=== PATIENT | male | born 1965 | race Two or more races ===

== ENCOUNTER 2024-05-15 11:21 | Inpatient (IN) | payer OTHER, SELFPAY ==
[2024-05-13] VITALS (10 sets, daily range): BP systolic 127–176; BP diastolic 85–114; BMI 29.8; BMI 29.0; BMI 28.8
[2024-05-13 14:35] LABS: % Basophils 0.6 % (0-2); % Eosinophils 0.3 % (0-6); % Immature Granulocytes 0.6 % (0-0.5); % Lymphocytes 27.3 % (20.5-51.1); % Monocytes 7.9 % (1.7-9.3); % Neutrophils 63.3 % (42.2-75.2); Absolute Basophils 0.1 10^3/uL (0-0.2); Absolute Immature Granulocytes 0.1 10^3/uL (0-0.05); Absolute Lymphocytes 3.4 10^3/uL (1.2-3.4); Absolute Neutrophils 7.9 10^3/uL (1.4-6.5); Hematocrit 47.4 % (39.0-52.0); Hemoglobin 16.8 g/dL (13.0-18.0); Mean Corp Hgb Conc. 35.4 g/dL (33.0-37.0); Mean Corpuscular Hgb 32.9 pg (27.0-31.0); Mean Corpuscular Volume 92.8 fL (80.0-94.0); Mean Platelet Volume 10.4 fL (7.4-10.4); Nucleated Red Blood Cells % 0 % (-); Platelet Count 216 10^3/uL (130-400); Red Blood Cell Count 5.11 10^6/uL (4.70-6.10); White Blood Cell Count 12.4 10^3/uL (4.8-10.8)
[2024-05-13 14:50] LABS: ALT (SGPT) 39 U/L (0-50); AST (SGOT) 44 U/L (17-59); Albumin 4.8 g/dl (3.5-5.0); Alkaline Phosphatase 70 U/L (38-126); Blood Urea Nitrogen 14 mg/dl (9-20); Calcium 10.1 mg/dl (8.4-10.2); Carbon Dioxide 19 mmol/L (22-30); Chloride 105 mmol/L (98-107); Glucose 135 mg/dl (70-99); Potassium 4.1 mmol/L (3.5-5.1); Sodium 142 mmol/L (135-145); Total Bilirubin 0.5 mg/dl (0.2-1.3); Total Protein 7.3 g/dl (6.3-8.2); eGFR > 60.00
[2024-05-13 15:11] LABS: Troponin I < 0.012 ng/ml
--- NOTE | 2024-05-13 15:44 | ED.GENMED ---
History of Present Illness
<Jonathan Hong MD, Resident - Last Filed: 05/13/24 20:05>
General
Chief Complaint: Chest Pain
Source: patient and records
Time Seen by Provider: 05/13/24 15:22
Travel History
Have you traveled to any high risk areas for coronavirus over the past 14 days?: No
Have you had any contact with someone who has COVID-19?: No
Do you have any symptoms of coronavirus? Fever > 100 degrees, chills, cough, shortness of breath, sore throat, loss of taste or smell, muscle aches, or headache?: No
History of Present Illness
History of Present Illness:
Lukas Pascal, 58-year-old male with a history of NSTEMI s/p stent in 2019, started experiencing left chest pain radiating to the arm and shoulder during a walk after lunch. Mild nausea and shortness of breath after the pain started and he got worried
about having another heart attack. Symptoms resolved in 20-30 minutes. He was mildly dizzy in the ED waiting room for a couple of minutes. Asymptomatic at present. Denies any recent changes to health or illnesses.
Past History
<Jonathan Hong MD, Resident - Last Filed: 05/13/24 20:05>
Past History
ED Past Medical History: AK (NSTEMI 2019)
ED Past Surgical History: Cardiac (stent 2019)
Social History
Tobacco: Smoker
Alcohol: Occasional
Drug: None
Personal:
Employment: Employed
Review of Systems
<Jonathan Hong MD, Resident - Last Filed: 05/13/24 20:05>
Review of Systems
All Other Systems: Not applicable
Constitutional: Reports no symptoms
EENT: Reports no symptoms
Respiratory: Reports no symptoms
Cardiac: Reports no symptoms
ABD/GI: Reports no symptoms
: Reports no symptoms
Musculoskeletal: Reports no symptoms
Skin: Reports no symptoms
Neurological: Reports no symptoms
Endocrine: Reports no symptoms
Hematologic/Lymphatic: Reports no symptoms
Psychiatric: Reports no symptoms
Phy Exam
<Jonathan Hong MD, Resident - Last Filed: 05/13/24 20:05>
General Physical Exam
General Presentation: well appearing and no apparent distress
General Skin: warm and dry
General Habitus: normal
General Mental: alert
General Hydration: appears well hydrated
ENT Exam
ENT Exam: EOMI, pharynx normal, neck supple and normocephalic
Eye Exam
Eye Exam: PERRL, cornea clear and conjunctiva normal
Cardiovascular Exam
Cardiovascular Exam: regular rate/rhythm, no edema, no murmur and normal peripheral pulses
Pulmonary Exam
Pulmonary Exam: lungs clear, no respiratory distress, no rales, no crackles, no rhonchi, no stridor, no wheezing and no cough
Gastrointestinal Exam
Gastrointestinal Exam: normal bowel sounds, non tender, soft, no organomegaly, no pulsatile mass and non distended
Neurological Exam
Neurological Exam: alert, oriented x3, no motor deficits and speech normal
Musculoskeletal Exam
Musculoskeletal Exam: full ROM and no edema
Skin Exam
Skin Exam: normal color, warm/dry, no rash and no petechia
Psychiatric Exam
Psychiatric Exam: normal mood/affect
Scores
<Jonathan Hong MD, Resident - Last Filed: 05/13/24 20:05>
Heart Score for Chest Pain Patients
STEMI patient?: No
History: Slightly or Non-Suspicious
ECG: Normal
Age: >45 - <65 years
Risk Factors: >/= 3 Risk Factors or History of CAD
Troponin: >/= 3 x Normal Limit
Heart Score for Chest Pain Patients: 5
Heart Score Risk: 20.3% MACE over next 6 weeks
Course
<Jonathan Hong MD, Resident - Last Filed: 05/13/24 20:05>
Orders/Labs/Results
Orders:
Orders
05/13/24 14:08
Electrocardiogram (*1) Urgent
Reason for Study: Chest Pain
EKG- Treatment ONCE
05/13/24 14:27
CMP [Comprehensive Metabolic Panel] Urgent
Complete Blood Count/With Diff Urgent
Troponin I Urgent
05/13/24 16:11
CT Chest Pe Study Urgent
Comment:
Reason For Exam: chest pain
05/13/24 16:12
0.9% Sodium Chloride 500 ml [Nss] 500 ml IV BOLUS
05/13/24 17:17
Troponin I Urgent
05/13/24 19:41
PTT Urgent
Comment: Obtain baseline before beginning heparin infusion if not already collected
Heparin 4,000 units IV NOW STA
Pharmacy Request to Place See Dose Instructions PO NOW STA
Discontinue all Active Warfarin orders?: Yes
Nursing to Place Non Medication Order As Directed
Physician Order: PTT 6 hours after initial start of Heparin infusion
05/13/24 19:44
Aspirin 325 mg PO NOW STA
05/13/24 19:45
Heparin 09119 Units/250 ml 25,000 units in 250 ml IV PER PROTOCOL
Weight to be used for heparin protocol in kilograms (kg):: 94.2
Protocol:: Cardiac Tx/Acute Coronary
PTT Goal Range to be used:: PTT 73 to 111 seconds
Order type:: Initial
INITIAL Infusion Dose (UNITS/KG/hr) & then follow protocol:: 15 units/kg/hr
Infusion Dose in UNITS/hr & then follow protocol (UNITS/hr):: 1,400
INFUSION RATE in mL/hr & then follow protocol (mL/hr):: 14
PTT less than or equal to 64 seconds:: Increase rate by 200 units/hr (+ 2 mL/hr)
PTT 64.1 to 72.9 seconds:: Increase rate by 100 units/hr (+ 1 mL/hr)
PTT 73 to 111 seconds:: Target Range. No change in rate.
PTT 111.1 to 130.9 seconds:: Decrease rate by 100 units/hr (- 1 mL/hr)
PTT 131 to 199.9 seconds:: HOLD for 1 hr. Then decrease rate by 200 units/hr (- 2 mL/hr)
PTT greater than or equal to 200 seconds:: HOLD for 2 hrs & Notify Provider. Then decrease by 200 units/hr (-
2 mL/hr)
Lab follow-up:: Each change, PTT q6h until 2 consecutive are therapeutic. Then PTT
daily.
05/13/24 19:57
CARDIOLOGY CONSULT Urgent
Consulting Provider: Antonio Rolle
Was physician already notified: Yes
05/13/24 20:[address] See Dose Instructions IV DIRECTED
Abnormal Lab Results
05/13/24 05/13/24
14:27 17:17
WBC 12.4 H 10^3/uL
(4.8-10.8)
MCH 32.9 H pg
(27.0-31.0)
Abs Immat Gran (auto) 0.1 H 10^3/uL
(0-0.05)
Absolute Neuts (auto) 7.9 H 10^3/uL
(1.4-6.5)
Absolute Monos (auto) 1.0 H 10^3/uL
(0.1-0.6)
Immature Gran % 0.6 H %
(0-0.5)
Carbon Dioxide 19 L mmol/L
(22-30)
Glucose 135 H mg/dl
(70-99)
Troponin I 0.042 H* D ng/ml
05/13/24 14:27
05/13/24 14:27
Vital Signs
Initial and Last Documented VS:
Initial Vital Signs
Temp Pulse Resp BP Pulse Ox
98.0 F 120 20 140/90 94
05/13/24 14:15 05/13/24 14:15 05/13/24 14:15 05/13/24 14:15 05/13/24 14:15
Last Documented Vital Signs
Temp Pulse Resp BP Pulse Ox
98.2 F 108 22 132/86 94
05/13/24 15:48 05/13/24 17:15 05/13/24 17:15 05/13/24 17:00 05/13/24 15:48
<Yennifer Milian MD - Last Filed: 05/13/24 16:22>
Orders/Labs/Results
Orders:
Orders
05/13/24 14:08
Electrocardiogram (*1) Urgent
Reason for Study: Chest Pain
EKG- Treatment ONCE
05/13/24 14:27
CMP [Comprehensive Metabolic Panel] Urgent
Complete Blood Count/With Diff Urgent
Troponin I Urgent
05/13/24 16:11
CT Chest Pe Study Urgent
Comment:
Reason For Exam: chest pain
05/13/24 16:12
0.9% Sodium Chloride 500 ml [Nss] 500 ml IV BOLUS
05/13/24 17:17
Troponin I Urgent
05/13/24 19:41
PTT Urgent
Comment: Obtain baseline before beginning heparin infusion if not already collected
Heparin 4,000 units IV NOW STA
Pharmacy Request to Place See Dose Instructions PO NOW STA
Discontinue all Active Warfarin orders?: Yes
Nursing to Place Non Medication Order As Directed
Physician Order: PTT 6 hours after initial start of Heparin infusion
05/13/24 19:44
Aspirin 325 mg PO NOW STA
05/13/24 19:45
Heparin 10845 Units/250 ml 25,000 units in 250 ml IV PER PROTOCOL
Weight to be used for heparin protocol in kilograms (kg):: 94.2
Protocol:: Cardiac Tx/Acute Coronary
PTT Goal Range to be used:: PTT 73 to 111 seconds
Order type:: Initial
INITIAL Infusion Dose (UNITS/KG/hr) & then follow protocol:: 15 units/kg/hr
Infusion Dose in UNITS/hr & then follow protocol (UNITS/hr):: 1,400
INFUSION RATE in mL/hr & then follow protocol (mL/hr):: 14
PTT less than or equal to 64 seconds:: Increase rate by 200 units/hr (+ 2 mL/hr)
PTT 64.1 to 72.9 seconds:: Increase rate by 100 units/hr (+ 1 mL/hr)
PTT 73 to 111 seconds:: Target Range. No change in rate.
PTT 111.1 to 130.9 seconds:: Decrease rate by 100 units/hr (- 1 mL/hr)
PTT 131 to 199.9 seconds:: HOLD for 1 hr. Then decrease rate by 200 units/hr (- 2 mL/hr)
PTT greater than or equal to 200 seconds:: HOLD for 2 hrs & Notify Provider. Then decrease by 200 units/hr (-
2 mL/hr)
Lab follow-up:: Each change, PTT q6h until 2 consecutive are therapeutic. Then PTT
daily.
05/13/24 19:57
CARDIOLOGY CONSULT Urgent
Consulting Provider: Antonio Rolle
Was physician already notified: Yes
05/13/24 20:[address] See Dose Instructions IV DIRECTED
Abnormal Lab Results
05/13/24 05/13/24
14:27 17:17
WBC 12.4 H 10^3/uL
(4.8-10.8)
MCH 32.9 H pg
(27.0-31.0)
Abs Immat Gran (auto) 0.1 H 10^3/uL
(0-0.05)
Absolute Neuts (auto) 7.9 H 10^3/uL
(1.4-6.5)
Absolute Monos (auto) 1.0 H 10^3/uL
(0.1-0.6)
Immature Gran % 0.6 H %
(0-0.5)
Carbon Dioxide 19 L mmol/L
(22-30)
Glucose 135 H mg/dl
(70-99)
Troponin I 0.042 H* D ng/ml
05/13/24 14:27
05/13/24 14:27
Vital Signs
Initial and Last Documented VS:
Initial Vital Signs
Temp Pulse Resp BP Pulse Ox
98.0 F 120 20 140/90 94
05/13/24 14:15 05/13/24 14:15 05/13/24 14:15 05/13/24 14:15 05/13/24 14:15
Last Documented Vital Signs
Temp Pulse Resp BP Pulse Ox
98.2 F 108 22 132/86 94
05/13/24 15:48 05/13/24 17:15 05/13/24 17:15 05/13/24 17:00 05/13/24 15:48
<Jonathan Hong MD, Resident - Last Filed: 05/13/24 20:05>
MDM/Problems Addressed
MDM/Problems Addressed:
Persistent tachycardia. Asymptomatic otherwise. Will check a PE study and repeat troponin.
Troponin elevation noted on repeat - will admit for a possible cath. Will discuss with cardiology.
<Jonathan Hong MD, Resident - Last Filed: 05/13/24 20:05>
*Critical Care Note
Total Time (30-74mins, 75-104mins- exclusive of procedures): Not Applicable
ED Attending Note
<Jonathan Hong MD, Resident - Last Filed: 05/13/24 20:05>
-
Portions of this chart may have been created with voice recognition software.� Occasional wrong word or��sound alike� substitutions may have occurred due to the inherent limitations of voice recognition software.
<Yennifer Milian MD - Last Filed: 05/13/24 16:22>
ED Attending Note
Patient seen and examined by attending physician: Yes
I performed a history and physical exam of patient and discussed management with resident, I reviewed resident's note and agree with documented findings and plan of care.: Yes
ED Attending Note:
4:22 pm Patient appears anxious but is conversational. Heart sounds fast and regular. Lungs are clear. We will do a second troponin and a PE study given persistent tachycardia. Patient reports his chest pain is much improved and nearly gone.
Discharge Plan
Departure
Patient Disposition: Admit
Date of Disposition: 05/13/24
Time of Disposition: 19:55
Presentation/result/management discussed w/ accepting MD/DO: Hospitalist
Discharge Problem:
Non-ST elevation AK (NSTEMI)
Prescriptions:
No Action
atorvastatin 80 MG tablet
80 mg PO QPM Qty: 30 11RF
pantoprazole 40 MG tablet,delayed release (DR/EC)
40 mg PO DAILY Qty: 30 11RF
aspirin 81 MG tablet,chewable
81 mg PO DAILY 0RF
ticagrelor [Brilinta] 90 MG tablet
90 mg PO BID Qty: 60 11RF
metoprolol succinate [Toprol XL] 25 MG tablet extended release 24 hr
25 mg PO BID 90 Days Qty: 180 0RF
Referrals:
Meghan Griffin DO [Family Provider] -
Interventions
Interventions:
*Neglect/Abuse Screening Last Done: 05/13/24 15:47
ED- Fall Risk Assessment Last Done: 05/13/24 15:46
*ED COVID-19 Vaccine History Last Done: 05/13/24 14:15
ED- Cardiac Assessment Last Done: 05/13/24 15:44
Discharge Date and Time
Print Language: TELUGU
[2024-05-13] MEDS: NSS 500 IV (17:18)
[2024-05-13 18:00] LABS: Troponin I 0.042 ng/ml
--- NOTE | 2024-05-13 20:24 | HPS.HSE ---
Family Physician
-
Family Physician: Meghan Griffin
Chief Complaint
-
chest pain
History of Present Illness
58-year-old male past medical history of CAD status post stent in 2019, presenting with left chest pain radiating to the arm and shoulder during a walk after lunch. Associated mild nausea without shortness of breath or sweating. Symptoms resolved
in 20 to 30 minutes. He was mildly dizzy in the ER. Denies any symptoms currently.
He smokes 4 to 5 cigarettes/day. He drinks 2-3 drinks per day. Sometimes a bit more.
Both of his parents had heart attacks.
Medical History
Past Medical History
Past Medical History: Reports Other (CAD status post stent in 2019)
Past Surgical History: Reports None
Social History
Tobacco: Smoker
Alcohol: Daily
Drug: None
Family History
Family History: Other (parents with CAD )
Allergies / Home Medications
Allergies reflects when Allergies were last updated in [facility].
Home Medications with original date entered in [facility]
Allergy/Medication List:
Allergies
Allergy/AdvReac Type Severity Reaction Status Date / Time
No Known Allergies Allergy Verified 05/13/24 14:21
Home Medications
aspirin 81 mg chewable tablet 81 mg PO DAILY 09/16/19
atorvastatin 80 mg tablet 80 mg PO QPM #30 tabs 09/16/19
pantoprazole 40 mg tablet,delayed release 40 mg PO DAILY #30 tabs 09/16/19
ticagrelor 90 mg tablet (Brilinta) 90 mg PO BID #60 tabs 09/16/19
metoprolol succinate 25 mg tablet,extended release 24 hr (Toprol XL) 25 mg PO BID 90 days ##180 09/17/19
Review of Systems
-
History Source: Patient
A 12 point ROS was completed and negative except as noted: Yes
Constitutional: Reports No Symptoms
EENT: Reports No Symptoms
Respiratory: Reports See HPI
Cardiac: Reports See HPI
Abdomen/GI: Reports No Symptoms
: Reports No Symptoms
Musculoskeletal: Reports No Symptoms
Skin: Reports No Symptoms
Neurological: Reports No Symptoms
Endocrine: Reports No Symptoms
Hematologic/Lymphatic: Reports No Symptoms
Psych: Reports No Symptoms
Physical Exam
Vital Signs
Vital Signs
Temp Pulse Resp BP Pulse Ox
98.2 F 108 22 132/86 94
05/13/24 15:48 05/13/24 17:15 05/13/24 17:15 05/13/24 17:00 05/13/24 15:48
Physical Exam
General: Well Developed, Well Nourished and No Apparent Distress
HEENT: NormoCephalic, Moist mucous membranes and Atraumatic
Respiratory: Clear
Cardiac: S1/S2 and Regular Rhythm; No Murmur or Rub
GI: Soft, Non Tender, Non Distended and Normal Bowel Sounds; No Organomegaly
Rectal: Deferred by Provider
Musculoskeletal: No Clubbing, No Cyanosis and No Edema
Skin: No Rash
Neuro: Nonfocal/grossly intact
Laboratory Results
-
05/13/24 14:27
05/13/24 14:27
Laboratory Results
Total Bilirubin 0.5 mg/dl (0.2-1.3) 05/13/24 14:27
AST 44 U/L (17-59) 05/13/24 14:27
ALT 39 U/L (0-50) 05/13/24 14:27
Alkaline Phosphatase 70 U/L (38-126) 05/13/24 14:27
Troponin I Cancelled 05/13/24 18:30
Data Reviewed
-
Lab Data: Labs Reviewed by me
Old Records: Reviewed
Impression/Plan
-
IMPRESSION:
PLAN:
# Acute coronary syndrome
# History of NSTEMI status post stent in 2019
-EKG shows sinus tachycardia, incomplete right bundle branch block,
-Troponin initially negative, increased to 0.042
-Trend troponins until peak
-Aspirin given, continue aspirin
-Heparin drip
-Continue statin
-Check A1c lipid panel
-Check echo
-Cardiology consulted
Active smoker
Arthritis
Daily alcohol use
-No signs of withdrawal
-Alcohol withdrawal protocol
GERD
-Continue Protonix
Full code
DVT prophylaxis�heparin drip
Regular diet
[2024-05-13] MEDS: ASPIRIN 325 MG PO (20:30)
--- NOTE | 2024-05-13 20:59 | EDRN ---
Called pharmacy to verify heparin
[2024-05-13] MEDS: HEPARIN 4000 UNITS IV (21:37)
[2024-05-13] MEDS: HEPARIN 25000 UNITS/250 ML IV (21:38)
[2024-05-13 21:40] LABS: APTT 25.4 Sec (23.4-35.0)
[2024-05-14] VITALS (10 sets, daily range): BP systolic 140–180; BP diastolic 82–112
[2024-05-14] MEDS: LOPRESSOR 2.5 MG IV (00:14)
[2024-05-14 01:06] LABS: HDL Cholesterol 85 mg/dl; LDL Cholesterol, Calculated 90 mg/dl; Total Cholesterol 188 mg/dl (50-199); Triglyceride 66 mg/dl (10-149); Troponin I 0.082 ng/ml; Very Low Density Lipoprotein 13 mg/dl (0-30)
--- NOTE | 2024-05-14 01:13 | PTCARENOTE ---
Pt rec'd from ED just after 11pm awake,alert denies cp or sob. adm hx taken and recorded. b/p elevated checked several times 180/112-115. sinus 80's in bed low 100 after ambulation to bathroom occ pvc's. House [employer] made aware of htn IV Lopressor 2.5
mg IV given. Pt states he hasn't taken his po Lopressor at home for quite some time. msas score 1 due to ht rate. Heparin remains at 1400 units/hr. HS snack given.
call degroot placed within reach. Pt aware to call if cp returns.
--- NOTE | 2024-05-14 04:59 | PTCARENOTE ---
Pt awoken for am labs. Sinus on telemetry. Pt's ht rate 60-70's when asleep but goes up to 90 when staff in room. Pt asked if he he suffers from white coat syndrome and pt responded 'I've been told that before'. B/p remains elevated. 143/100. House
Parking Meter Attendant contacted. MOLDED CANDLES WICKER stated she wanted am Lopressor given early.
[2024-05-14] MEDS: TOPROL XL 25 MG PO ×2 (05:03→20:20)
[2024-05-14 05:10] LABS: APTT 90.1 Sec (23.4-35.0)
[2024-05-14 05:26] LABS: % Basophils 0.6 % (0-2); % Eosinophils 1.3 % (0-6); % Immature Granulocytes 0.6 % (0-0.5); % Monocytes 8.5 % (1.7-9.3); Absolute Basophils 0.1 10^3/uL (0-0.2); Absolute Eosinophils 0.1 10^3/uL (0-0.7); Absolute Immature Granulocytes 0.1 10^3/uL (0-0.05); Absolute Lymphocytes 3.8 10^3/uL (1.2-3.4); Absolute Monocytes 0.9 10^3/uL (0.1-0.6); Absolute Neutrophils 5.4 10^3/uL (1.4-6.5); Hematocrit 44.9 % (39.0-52.0); Mean Corp Hgb Conc. 35.6 g/dL (33.0-37.0); Mean Corpuscular Volume 95.3 fL (80.0-94.0); Mean Platelet Volume 10.3 fL (7.4-10.4); Nucleated Red Blood Cells % 0 % (-); Platelet Count 157 10^3/uL (130-400); Red Blood Cell Count 4.71 10^6/uL (4.70-6.10); Red Cell Dist. Width 11.9 % (11.5-14.5); White Blood Cell Count 10.3 10^3/uL (4.8-10.8)
[2024-05-14 05:37] LABS: Troponin I 0.064 ng/ml
[2024-05-14 05:45] LABS: ALT (SGPT) 34 U/L (0-50); AST (SGOT) 38 U/L (17-59); Alkaline Phosphatase 77 U/L (38-126); Blood Urea Nitrogen 12 mg/dl (9-20); Calcium 9.4 mg/dl (8.4-10.2); Carbon Dioxide 24 mmol/L (22-30); Chloride 105 mmol/L (98-107); Estimated Creatinine Clearance > 125 ml/min; Glucose 104 mg/dl (70-99); Potassium 4.2 mmol/L (3.5-5.1); Sodium 138 mmol/L (135-145); Total Bilirubin 0.7 mg/dl (0.2-1.3); Total Protein 6.4 g/dl (6.3-8.2); eGFR > 60.00
--- NOTE | 2024-05-14 07:00 | PTCARENOTE ---
report received at change of shift from previous RN. AAOX3. pt denies chest pain or shortness of breath. SR/ST on telemetry heart rate 90-low 100s. pulses palpable. no edema. pt on room air, sat 97%. lung sounds clear. active bowel sounds. voiding
without difficulty. heparin gtt infusing per protocol. pt updated on plan of care. see worklist for full nursing assessment and interventions.
--- NOTE | 2024-05-14 08:25 | W.PN.HOSP.TC ---
Today's Communication/Plan
-
see bold
Assessment / Plan
Assessment / Plan
Gen: NAD, AAOx3.
Eyes: EOMI, PERRLA, no scleral icterus.
Neck: supple.
CV: RRR, +S1/S2, no m/r/g.
Resp: CTAB, no rales, wheezes, or rhonchi.
Abd: +BS, soft, NT, ND
Skin: No rashes.
Neuro: CN 2-12 intact, non-focal.
Psych: Normal mood and affect.
Acute coronary syndrome
-h/o NSTEMI s/p stent 2019
-EKG shows sinus tachycardia, incomplete right bundle branch block, no acute ST/TW changes
-trops very minimally elevated, highest 0.082
-cont ASA/statin
-cont heparin drip
-LDL 90
-Check a1c
-Check echo
-Cardiology consulted. Case discussed with Dr. Tariq, like cath tomorrow.
Other problems:
Tobacco abuse disorder: Encourage smoking cessation
Arthritis
Daily alcohol use: No signs of withdrawal. CIWA/MSAS protocol.
GERD: Continue Protonix
FULL/heparin drip
Anticipated Discharge: 24 - 48 hours
Subjective/Interval History
-
Date of Service: May 14, 2024
Denies CP/SOB.
Objective Data
-
Labs:
Laboratory Results
05/13/24 05/13/24 05/14/24
20:44 21:04 04:48
WBC 10.3
Hgb 16.0
Hct 44.9
Plt Count 157 D
APTT Cancelled 25.4 90.1 H
Sodium 138
Potassium 4.2
Chloride 105
Carbon Dioxide 24
BUN 12
Creatinine 0.6 L
Glucose 104 H
Calcium 9.4
Total Bilirubin 0.7
AST 38
ALT 34
Alkaline Phosphatase 77
05/14/24
11:00
WBC
Hgb
Hct
Plt Count
APTT Pending
Sodium
Potassium
Chloride
Carbon Dioxide
BUN
Creatinine
Glucose
Calcium
Total Bilirubin
AST
ALT
Alkaline Phosphatase
Vital Signs:
Vital Signs
Temp Pulse Resp BP Pulse Ox
97.8 F 70 20 143/100 97
05/14/24 07:40 05/14/24 05:00 05/14/24 07:40 05/14/24 04:50 05/14/24 07:40
I&O
05/13/24 05/14/24 05/15/24
06:59 06:59 06:59
Intake Total 240 / 240
Balance 240 / 240
[2024-05-14] MEDS: FOLVITE 1 MG PO (08:30)
[2024-05-14] MEDS: LOW STRENGTH ASPIRIN 81 MG PO (08:30)
[2024-05-14] MEDS: PROTONIX 40 MG PO (08:30)
[2024-05-14] MEDS: VITAMIN B1 100 MG PO (08:30)
[2024-05-14 11:33] LABS: APTT 77.3 Sec (23.4-35.0)
[2024-05-14 11:56] LABS: Troponin I 0.044 ng/ml
[2024-05-14 12:58] LABS: Glycohemoglobin (HgbA1c) 5.8 % (4.0-5.6)
[2024-05-14] MEDS: HEPARIN 25000 UNITS/250 ML IV (15:27)
--- NOTE | 2024-05-14 15:49 | CON.CAR ---
Consultation
Consultation Request
Date/Time Consultation Requested: 05/14/24
Date/Time Consultation Performed: 05/14/24
Requesting Provider: Velma
Performing Provider: Marciano
Reason for Consultation: chest pain, elevated troponin
Medical History
-
Chief Complaint: chest pain
History of Present Illness:
59-year-old man past medical history of ischemic cardiomyopathy with prior PCI in 2019 for inferior STEMI who presents with an episode of chest discomfort and was found to have mildly elevated troponin consistent with NSTEMI.
Patient tells me he went for a walk yesterday and developed chest discomfort. This lasted for approximately 20 minutes and then resolved. He identifies this as being similar to his prior angina prior to PCI. Troponin here was initially
undetectable and then kenyon to 0.082 where it peaked. Patient was admitted to the IVU and treated with aspirin, high intensity statin, beta-angelic and heparin drip. He has had no recurrence of his chest discomfort. No other associated symptoms,
no shortness of breath, lower extremity edema or palpitations.
PMHx:
CAD
Inferior STEMI s/p RCA PCI 09/2019
Ischemic CM (EF 46%)
HLD
Current smoker
Past Medical History
Past Medical History: Other (as above)
Past Surgical History: Other (as above)
Social History
Tobacco: Smoker
Family History
Family History: Reviewed & Not Pertinent
Allergies / Home Medications
Allergy/AdvReac Type Severity Reaction Status Date / Time
No Known Allergies Allergy Verified 05/13/24 14:21
�Medication �Instructions �Recorded �Confirmed �Type
aspirin 81 mg chewable tablet 81 mg PO DAILY 09/16/19 05/13/24 Rx
atorvastatin 80 mg tablet 80 mg PO QPM #30 tabs 09/16/19 05/13/24 Rx
pantoprazole 40 mg tablet,delayed 40 mg PO DAILY #30 tabs 09/16/19 05/13/24 Rx
release
metoprolol succinate 25 mg 25 mg PO BID 90 days ##180 09/17/19 05/13/24 Rx
tablet,extended release 24 hr
(Toprol XL)
Review of Systems
-
History Source: Patient
All other systems: Negative unless noted
Physical Exam
Vital Signs
Temp Pulse Resp BP Pulse Ox
98.2 F 96 20 164/95 95
05/14/24 11:53 05/14/24 14:00 05/14/24 11:53 05/14/24 11:56 05/14/24 11:53
Lab Results
05/14/24 04:48
05/14/24 04:48
Troponin I 0.044 ng/ml H* D 05/14/24 11:12
Physical Exam
General: Well Developed
HEENT: Normocephalic
Respiratory: Clear and Non Labored Respirations
Cardiac: S1/S2 and Regular Rhythm
GI: Soft
Skin: Warm and Dry
Neuro: AO x 3
Psych: Calm
Impression / Plan
-
Sales Operations: Randi
Assessment:
NSTEMI
H/o CAD
Inferior STEMI s/p RCA PCI 09/2019
Ischemic CM (EF 46%)
HLD
Current smoker
Plan:
-Presenting with 20 to 30 minutes of chest discomfort which he identifies as his prior angina
-Troponin initially undetectable and then peaked at 0.082
-ECG without obvious ischemic changes
-Currently chest pain-free
-Continue medical management with aspirin, high intensity statin, beta-angelic and heparin drip
-Tentative plan for invasive coronary angiography in the morning
-Given history of ischemic cardiomyopathy plan to repeat echo tomorrow to reassess LVEF
-Smoking cessation advised
Discussed with hospitalist
Data Reviewed
-
EKG: Tracing Personally Visualized and interpreted
Radiology: Report Reviewed by me
CT Scan: Report Reviewed by me
Medical Tests (Nuc Med, Echo etc): Report Reviewed by me
Labs: Labs Reviewed by me
Old Records: Reviewed
[2024-05-14] MEDS: LIPITOR 80 MG PO (17:35)
--- NOTE | 2024-05-14 19:58 | PTCARENOTE ---
Assumed pt care. Pt resting in bed at time of assessment. AAO x 4, denies pain at time of assessment. Pt on RA, POX 96%, posterior BS clear/equal B/L, denies SOB. Pt in NSR on monitor, heart tones normal, denies CP, pulses palpable B/L, no edema
noted. Up ad nayeli, tolerating walking in room. BS audible, good appetite, NPO at midnight. Pt voiding without issue. Skin intact. PIV x 1 present & patent. Heparin gtt infusing per protocol. VS obtained. Pt provided linen for PM care. See MAR.
[2024-05-15] VITALS (8 sets, daily range): BP systolic 117–154; BP diastolic 78–118
--- NOTE | 2024-05-15 04:40 | PTCARENOTE ---
VS obtained. Pt sleeping throughout night. Denies CP. Labs drawn & sent. Heparin gtt con't. No other changes.
[2024-05-15 04:45] LABS: Hemoglobin 16.6 g/dL (13.0-18.0); Mean Corp Hgb Conc. 35.3 g/dL (33.0-37.0); Mean Corpuscular Hgb 33.8 pg (27.0-31.0); Mean Corpuscular Volume 95.7 fL (80.0-94.0); Mean Platelet Volume 10.3 fL (7.4-10.4); Platelet Count 165 10^3/uL (130-400); Red Blood Cell Count 4.91 10^6/uL (4.70-6.10); Red Cell Dist. Width 11.9 % (11.5-14.5); White Blood Cell Count 8.7 10^3/uL (4.8-10.8)
[2024-05-15 04:58] LABS: APTT 91.9 Sec (23.4-35.0)
--- NOTE | 2024-05-15 08:05 | PTCARENOTE ---
Assumed care of pt from prev nsg shift; Pt AAOx3 w/no c/o CP or SOB. Pt's HR stable in the 80's-90's & pt is SR on telemetry monitoring. Pt's BP elevated this AM at 154/112. Pt was just ambulating in the rm & halls & reports 'feeling anxious about
his cath today'. Emotional support provided. Report given to Gianna in the laborer/grade check & pt taken in bed at approx 0820 to the laborer/grade check. Plan of care ongoing.
[2024-05-15] MEDS: PROTONIX 40 MG PO (08:42)
[2024-05-15] MEDS: LOW STRENGTH ASPIRIN 81 MG PO (08:42)
[2024-05-15] MEDS: TOPROL XL 25 MG PO ×2 (08:42→19:56)
[2024-05-15] MEDS: VITAMIN B1 100 MG PO (08:42)
--- NOTE | 2024-05-15 09:08 | W.PN.HOSP.TC ---
Today's Communication/Plan
-
Cardiac cath today
Monitor overnight per cardiology
Anticipate discharge tomorrow if stable
Assessment / Plan
Assessment / Plan
Physical Exam
Gen: NAD, AAOx3.
Eyes: Normocephalic
Neck: supple.
CV: RRR, +S1/S2
Resp: CTAB
Abd: +BS, soft, NT, ND
Skin: Warm. Dry.
Neuro: CN 2-12 intact, non-focal.
Psych: Normal mood and affect.
Assessment/Plan
Acute coronary syndrome
'Restenosis/neoatherosclerotic disease in the distal one third of the RCA stent which was successfully treated with placement of a 4.0 x 12 mm Derian stent that was implanted at 12 arash and postdilated to high pressures with a 4.0 x 12 noncompliant
balloon to 20 arash' (per cardiac cath report)
'Stable atherosclerotic disease in the circumflex and LAD' (per cardiac cath report)
'Low normal LVEF estimated at 50% with diaphragmatic inferior hypokinesis' (per cardiac cath report)
-h/o NSTEMI s/p stent 2019
-EKG shows sinus tachycardia, incomplete right bundle branch block, no acute ST/TW changes
-trops very minimally elevated, highest 0.082
-continue ASA/Brilinta/high-intensity statin
-LDL 90
-HbA1c 5.8%
-Aggressive blood pressure control
-Cardiology consulted, cardiac cath took place on 05/15/24
Other problems
Tobacco abuse disorder: Encourage smoking cessation
Arthritis
Daily alcohol use: No signs of withdrawal. CIWA/MSAS protocol.
GERD: Continue Protonix
FULL CODE
SCDs for DVT Prophylaxis
Anticipated Discharge: Within 24 hours
Subjective/Interval History
-
Date of Service: May 15, 2024
Patient was seen and examined. He denied any chest pain, SOB or any other symptoms or complaints.
Objective Data
-
Labs:
Laboratory Results
05/15/24
04:27
WBC 8.7
Hgb 16.6
Hct 47.0
Plt Count 165
APTT 91.9 H
Vital Signs:
Vital Signs
Temp Pulse Resp BP Pulse Ox
97.6 F 93 20 154/112 96
05/15/24 08:40 05/15/24 08:35 05/15/24 08:40 05/15/24 08:35 05/15/24 08:40
I&O
05/14/24 05/15/24 05/16/24
06:59 06:59 06:59
Intake Total 240 / 240 904 / 904
Balance 240 / 240 904 / 904
[2024-05-15 09:50] LABS: ACT-LR - POC 290 Seconds (116-155)
[2024-05-15 10:06] LABS: ACT-LR - POC 311 Seconds (116-155)
[2024-05-15] MEDS: FOLVITE 1 MG PO (10:22)
--- NOTE | 2024-05-15 10:23 | ITS.CL.CATH ---
[employer] - Catheterization
Cardiac Catheterization
Procedure Report:
LEFT HEART CATH AND CORONARY INTERVENTION
Date of Procedure: May 15, 2024
Referring: Dr. Haseeb Tariq
PROCEDURES:
1. Left heart catheterization with coronary and single-plane left ventriculography
2. Successful stenting of the mid RCI within a segment of in-stent restenosis within the previously placed stent from September 2019. A 4.0 x 12 mm [place] stent was implanted at nominal pressures and postdilated with a 4.0 mm noncompliant balloon to
20 arash
INDICATION: This is a 59-year-old gentleman with a prior history of coronary artery disease who underwent successful stenting of a 100% occluded proximal RCA with placement of a 4.0 x 28 mm Xience stent that was implanted at nominal pressures and
postdilated to 14 arash with a 4.0 mm noncompliant balloon. He has done well since that time but developed new onset substernal chest tightness and subsequently ruled in for a small non-ST segment elevation myocardial infarction with peak troponin of
0.082 ng/mL. Given his symptoms and mildly elevated troponin the decision was made to refer for coronary angiography.
ACCESS: Right radial artery, 6 Luxem[place] sheath
HEMODYNAMICS (mmHg):
AO (s/d, m) : 130/95, 111
LV (s/d) : 131/16
LVEDP : 22
CORONARY FINDINGS: Three-vessel coronary calcification
Dominance: Right
LEFT MAIN: Normal
LEFT ANTERIOR DESCENDING: The LAD arises normally from the left main and runs in the anterior interventricular groove. The LAD has a smooth 50% proximal stenosis that appears angiographically unchanged when compared to the prior study. The LAD
approaches but does not wraparound the apex.
CIRCUMFLEX: The circumflex is a medium caliber nondominant vessel rise to a very small first obtuse marginal branch. The mid circumflex has diffuse nonfocal luminal irregularities and gives rise to a small caliber OM 2 and terminates in larger
medium caliber OM 3 that has a 40% proximal stenosis
RIGHT CORONARY: The right coronary artery is a large-caliber dominant vessel that has a long stented segment from its proximal to midportion. There is a hazy 70% stenosis in the distal portion of the stented segment with a 30% stenosis noted distal
to the stent which appears angiographically stable. The remainder of the right coronary artery has luminal irregularities extending to the crux of the vessel. The PDA is a large and has minor irregularities. The posterolateral branch is large
VENTRICULOGRAPHY: Left ventriculography is performed in an HEALY projection. The digital single-plane left ventricular ejection fraction is estimated at 50% with diaphragmatic inferior hypokinesis noted
ANGIOPLASTY PROCEDURE DETAIL: Upon review of the diagnostic catheterization films the decision was made to proceed with stenting of the in-stent restenotic segment in the distal one third of the previously placed RCA stent. Intravenous heparin was
administered and the ACT was monitored during the procedure. A 180 mg loading dose of ticagrelor was administered at the beginning of the interventional procedure.
The origin of the right coronary artery was cannulated with a 6 Luxembour[place] JR4 guiding catheter. Primary stenting was performed with placement of a 4.0 x 12 mm Derian stent across the hazy romel-atherosclerotic segment. A waist was noted in the stent
balloon during appointment. This improved with high-pressure balloon inflation. The stent was postdilated with a 4.0 x 12 mm noncompliant balloon that was utilized to implant the stent at 20 arash
RADIATION SUMMARY: Fluoro Time (min): 6.7, Dose (mGy): 870, DAP (Gy.cm2) : 54.4
CONCLUSIONS
1. Restenosis/neoatherosclerotic disease in the distal one third of the RCA stent which was successfully treated with placement of a 4.0 x 12 mm [place] stent that was implanted at 12 arash and postdilated to high pressures with a 4.0 x 12 noncompliant
balloon to 20 arash
2. Stable atherosclerotic disease in the circumflex and LAD
3. Low normal LVEF estimated at 50% with diaphragmatic inferior hypokinesis
RECOMMENDATIONS
1. Uninterrupted dual antiplatelet therapy for 1 year
2. High intensity lipid-lowering and aggressive blood pressure control as these are his 2 modifiable risk factors
Copy to: Dr. Juanito Bryan
--- NOTE | 2024-05-15 11:15 | CARDSERVLU ---
Echocardiogram with Lumason completed after protocol screening completed. Allergies verified.
Patent IV site: __L hand___
IV site flushed with 0.9% NaCl pre and post administration.
Diluted bolus method utilized to enhance visualization of ventricular lux.
Total volume given: _3.5___ mL
Patient tolerated all procedures well without complications.
--- NOTE | 2024-05-15 11:23 | CM ---
Pricing on Brilinta is covered under the patient's prescription plan at$35 a month. The patient has commercial insurance, so he qualifies for the $5 copay card. Brilinta is in stock at the patient's [facility]. I will place the copay card in
the patient's red discharge folder.
--- NOTE | 2024-05-15 13:50 | CM ---
Chart reviewed. Patient is independent of ADLS, lives with his significant other in a [address], they live on 2nd and 3rd floor, 13-14 K[address], 0 DME. Plan is for the patient to return home. CM to follow
[2024-05-15] MEDS: LIPITOR 80 MG PO (18:18)
[2024-05-15] MEDS: BRILINTA 90 MG PO (19:56)
--- NOTE | 2024-05-15 20:56 | PTCARENOTE ---
Pt rec'd in bed without complaint. Right radial site with DDI. No active bleeding or hematoma present. Sinus on telemetry. Spoke with pt regarding med adherence once discharged. call degroot within reach.
[2024-05-16 05:26] VITALS: BP 129/98
[2024-05-16 05:51] LABS: Hematocrit 45.6 % (39.0-52.0); Hemoglobin 16.1 g/dL (13.0-18.0); Mean Corp Hgb Conc. 35.3 g/dL (33.0-37.0); Mean Corpuscular Hgb 32.7 pg (27.0-31.0); Mean Corpuscular Volume 92.5 fL (80.0-94.0); Mean Platelet Volume 10.2 fL (7.4-10.4); Platelet Count 182 10^3/uL (130-400); Red Blood Cell Count 4.93 10^6/uL (4.70-6.10); White Blood Cell Count 8.4 10^3/uL (4.8-10.8)
[2024-05-16 06:10] LABS: Blood Urea Nitrogen 15 mg/dl (9-20); Calcium 9.8 mg/dl (8.4-10.2); Carbon Dioxide 24 mmol/L (22-30); Chloride 103 mmol/L (98-107); Estimated Creatinine Clearance 119 ml/min; Glucose 121 mg/dl (70-99); Potassium 4.6 mmol/L (3.5-5.1); Sodium 138 mmol/L (135-145); eGFR > 60.00
[2024-05-16 07:59] VITALS: BP 147/99
[2024-05-16] MEDS: TOPROL XL 25 MG PO (08:35)
[2024-05-16] MEDS: PROTONIX 40 MG PO (08:36)
[2024-05-16] MEDS: LOW STRENGTH ASPIRIN 81 MG PO (08:36)
[2024-05-16] MEDS: BRILINTA 90 MG PO (08:36)
[2024-05-16] MEDS: VITAMIN B1 100 MG PO (08:37)
[2024-05-16] MEDS: FOLVITE 1 MG PO (08:37)
--- NOTE | 2024-05-16 08:54 | W.CARD.POSTP ---
Post PCI Follow Up
Procedure
Procedure/Date: 05/15/24- 70% hazy stenosis in distal stented segment of RCA, s/p successful angioplasty and SERGIO
LVGram- EF 50% with diaphragmatic inferior HK
Subjective: denies cp/palps/dyspnea
raidal cath site without pain
oob ambulating
Site
Site: Radial: Right and No ht/bleeding, distal pulses palpable
Tele / EKG
NSR 80-90s with bursts SVT 120s, no acute changes, no VT
Labs
05/16/24 05:37
05/16/24 05:37
APTT 91.9 Sec (23.4-35.0) H 05/15/24 04:27
Triglycerides 66 mg/dl (10-149) 05/14/24 00:33
LDL Cholesterol, Calc 90 mg/dl 05/14/24 00:33
VLDL Cholesterol, Calc 13 mg/dl (0-30) 05/14/24 00:33
HDL Cholesterol 85 mg/dl 05/14/24 00:33
DAPT Medication
DAPT Medication: Aspirin 81mg daily and Tricagrelor 90 mg BID
Case Management checking gan: Yes (agreeable to cost)
Plan
NSTEMI w/peak troponin 0.082
RCA w/distal stent 70% restenosis, s/p angioplasty/SERGIO x1
DAPT w/asa, brilinta- agreeable to cost- see CM note
BP modestly elevated- would add julien/arb as tolerated per primary cards service
Cardi rehab consulted
Cards Followup- 05/30 at 3pm w/Dr. Bryan
[2024-05-16 10:52] VITALS: BP 138/97
[2024-05-16] MEDS: COZAAR 25 MG PO (10:54)
--- NOTE | 2024-05-16 14:03 | W.PN.HOSP.TC ---
Today's Communication/Plan
-
Discharge today
Assessment / Plan
Assessment / Plan
Physical Exam
Gen: NAD, AAOx3.
Eyes: Normocephalic
Neck: supple.
CV: RRR, +S1/S2
Resp: CTAB
Abd: +BS, soft, NT, ND
Skin: Warm. Dry.
Neuro: CN 2-12 intact, non-focal.
Psych: Normal mood and affect.
Assessment/Plan
Acute coronary syndrome
'Restenosis/neoatherosclerotic disease in the distal one third of the RCA stent which was successfully treated with placement of a 4.0 x 12 mm [place] stent that was implanted at 12 arash and postdilated to high pressures with a 4.0 x 12 noncompliant
balloon to 20 arash' (per cardiac cath report)
'Stable atherosclerotic disease in the circumflex and LAD' (per cardiac cath report)
'Low normal LVEF estimated at 50% with diaphragmatic inferior hypokinesis' (per cardiac cath report)
-h/o NSTEMI s/p stent 2020
-EKG shows sinus tachycardia, incomplete right bundle branch block, no acute ST/TW changes
-trops very minimally elevated, highest 0.082
-continue Aspirin 81mg daily and Ticagrelor 90 mg BID
-continue high-intensity statin
-continue Losartan 25 mg PO daily
-LDL 90
-HbA1c 5.8%
-Aggressive blood pressure control
-Cardiology consulted, cardiac cath took place on 05/15/24
Other problems
Tobacco abuse disorder: Encourage smoking cessation
Arthritis
Daily alcohol use: No signs of withdrawal. CIWA/MSAS protocol.
GERD: Continue Protonix
FULL CODE
SCDs for DVT Prophylaxis
More than 30 minutes spent in discharge including
Final examination of the patient
Summarizing hospital stay
Instructions for continuing care to all relevant caregivers
Preparation of discharge records, prescriptions, and referral forms
Total time spent (in minutes): 40
Anticipated Discharge: Today
Subjective/Interval History
-
Date of Service: May 16, 2024
Patient was seen and examined. He denied any chest pain, shortness of breath, or any other new symptoms or complaints.
Objective Data
-
Labs:
Laboratory Results
05/16/24
05:37
WBC 8.4
Hgb 16.1
Hct 45.6
Plt Count 182
Sodium 138
Potassium 4.6
Chloride 103
Carbon Dioxide 24
BUN 15
Creatinine 0.7
Glucose 121 H
Calcium 9.8
Vital Signs:
Vital Signs
Temp Pulse Resp BP Pulse Ox
97.8 F 99 18 138/97 97
05/16/24 07:45 05/16/24 13:00 05/16/24 07:45 05/16/24 10:54 05/16/24 07:45
I&O
05/15/24 05/16/24 05/17/24
06:59 06:59 06:59
Intake Total 904 / 904 1010 / 1010
Balance 904 / 904 1010 / 1010
--- NOTE | 2024-05-16 14:21 | W.PN.CARDCBS ---
Today's Communication / Plan
-
Doing well status post RCA stent.
Continue aspirin and Brilinta.
Continue atorvastatin, Toprol, losartan.
Okay for discharge
Impression / Plan
-
Dustless Operator: Randi
Assessment:
NSTEMI/RCA PCI
H/o CAD
Inferior STEMI s/p RCA PCI 09/2019
Ischemic CM (EF 46%)
HLD
Current smoker
05/15/24- 70% hazy stenosis in distal stented segment of RCA, s/p successful angioplasty and SERGIO
LVGram- EF 50% with diaphragmatic inferior HK
Plan:
NSTEMI w/peak troponin 0.082
RCA w/distal stent 70% restenosis, s/p angioplasty/SERGIO x1
DAPT w/asa, brilinta- agreeable to cost- see CM note
Cont Toprol/Cozaar
[facility] rehab consulted
Cards Followup- 05/30 at 3pm w/Dr. Bryan
OK for D/C
Progress Note - Dustless Operator
Subjective
Date of Service: May 16, 2024
feels well. No chest pains/sob
Objective
Labs:
05/16/24 05:37
05/16/24 05:37
Labs
Hgb 16.1 g/dL (13.0-18.0) 05/16/24 05:37
Hct 45.6 % (39.0-52.0) 05/16/24 05:37
Plt Count 182 10^3/uL (130-400) 05/16/24 05:37
APTT 91.9 Sec (23.4-35.0) H 05/15/24 04:27
Sodium 138 mmol/L (135-145) 05/16/24 05:37
Potassium 4.6 mmol/L (3.5-5.1) 05/16/24 05:37
BUN 15 mg/dl (9-20) 05/16/24 05:37
Creatinine 0.7 mg/dL (0.7-1.3) 05/16/24 05:37
Glucose 121 mg/dl (70-99) H 05/16/24 05:37
Troponins
05/13/24 05/13/24 05/13/24
14:27 17:17 18:30
Troponin I < 0.012 0.042 H* D Cancelled
05/14/24 05/14/24 05/14/24
00:33 04:48 11:12
Troponin I 0.082 H* D 0.064 H* 0.044 H* D
Vital Signs and I&O:
Vital Signs
Temp Pulse Resp BP Pulse Ox
97.8 F 99 18 138/97 97
05/16/24 07:45 05/16/24 13:00 05/16/24 07:45 05/16/24 10:54 05/16/24 07:45
Vital Signs
Temp Pulse Resp BP Pulse Ox
97.8 F 99 18 138/97 97
05/16/24 07:45 05/16/24 13:00 05/16/24 07:45 05/16/24 10:54 05/16/24 07:45
Intake & Output
05/14/24 05/15/24 05/16/24 05/17/24
06:59 06:59 06:59 06:59
Intake Total 240 / 240 904 / 904 1010 / 1010
Balance 240 / 240 904 / 904 1010 / 1010
Physical Exam
Physical Exam
GEN: No distress, awake, Ox3
HEENT: supple, anicteric, mmm
LUNGS: CTA, no wheezes/rales
CV: Reg, S1/S2, 1/6 syst LSB, no gallop
ABD: soft, BS+, NT/ND
EXT: No edema
NEURO: Gross non-focal
SKIN: No rash
== END 2024-05-16 16:14 | disposition home or self-care (01) | DRG 322 ==
LOC: IVU 11:21
PROVIDERS: Emergency Medicine; Internal Medicine Interventional Cardiology; Nurse Practitioner; Student in an Organized Health Care Education/Training Program; ADMITTING PHYSICIAN Hospitalist; ATTENDING PHYSICIAN Hospitalist; CONSULT PHYSICIAN Internal Medicine Cardiovascular Disease; EMERGENCY PHYSICIAN Emergency Medicine; FAMILY PHYSICIAN Family Medicine
PROC: 4A023N7 Measurement of Cardiac Sampling and Pressure, Left Heart, Percutaneous Approach (ICD-10-PCS; 2024-05-15)
PROC: 027034Z Dilation of Coronary Artery, One Artery with Drug-eluting Intraluminal Device, Percutaneous Approach (ICD-10-PCS; 2024-05-15)
PROC: B2111ZZ Fluoroscopy of Multiple Coronary Arteries using Low Osmolar Contrast (ICD-10-PCS; 2024-05-15)
DX: I21.4 Non-ST elevation (NSTEMI) myocardial infarction (principal); I25.10 Atherosclerotic heart disease of native coronary artery without angina pectoris; I45.10 Unspecified right bundle-branch block; F17.210 Nicotine dependence, cigarettes, uncomplicated; K21.9 Gastro-esophageal reflux disease without esophagitis; E78.5 Hyperlipidemia, unspecified; I25.5 Ischemic cardiomyopathy; I25.2 Old myocardial infarction; Z79.82 Long term (current) use of aspirin
CPT/HCPCS: 71275; 80048; 80053; 80061; 83036; 84484; 85025; 85027; 85347; 85730; 93005; 93306; 93458; 96365; 99285; 99406; C1725; C1769; C1874; C1894; C9600; Q9950; Q9967

== ENCOUNTER 2024-12-24 16:00 | Emergency (ER) | payer OTHER, SELFPAY ==
[2024-12-24 16:05] VITALS: BP 147/113
[2024-12-24 16:08] VITALS: BP 147/113
[2024-12-24 16:21] VITALS: BP 152/105
[2024-12-24 16:34] LABS: Glucose - Point of Care 92 mg/dl (70-99)
[2024-12-24 16:38] VITALS: BMI 28.2
[2024-12-24 16:43] LABS: % Eosinophils 0.6 % (0-6); % Immature Granulocytes 0.2 % (0-0.5); % Lymphocytes 35.2 % (20.5-51.1); % Monocytes 7.6 % (1.7-9.3); % Neutrophils 55.4 % (42.2-75.2); Absolute Basophils 0.1 10^3/uL (0-0.2); Absolute Lymphocytes 2.2 10^3/uL (1.2-3.4); Absolute Monocytes 0.5 10^3/uL (0.1-0.6); Absolute Neutrophils 3.4 10^3/uL (1.4-6.5); Hematocrit 48.5 % (39.0-52.0); Hemoglobin 16.5 g/dL (13.0-18.0); Mean Corpuscular Hgb 33.3 pg (27.0-31.0); Mean Corpuscular Volume 97.8 fL (80.0-94.0); Mean Platelet Volume 9.5 fL (7.4-10.4); Nucleated Red Blood Cells % 0 % (-); Platelet Count 161 10^3/uL (130-400); Red Blood Cell Count 4.96 10^6/uL (4.70-6.10); Red Cell Dist. Width 12.4 % (11.5-14.5); White Blood Cell Count 6.2 10^3/uL (4.8-10.8)
--- NOTE | 2024-12-24 16:51 | ED.GENMED ---
History of Present Illness
<Waleska Rg PA-C - Last Filed: 12/24/24 17:51>
General
Chief Complaint: Fall
Source: patient, records and ambulance crew
Exam Limitations: other (intoxication)
Time Seen by Provider: 12/24/24 16:04
History of Present Illness
History of Present Illness:
Patient is a 59-year-old male with past medical history of coronary artery disease status post cardiac stenting 2019 and another cardiac stent placed in 2023, who presents to the emergency department via EMS for evaluation following a fall. Patient
reports that he was drinking alcohol today. He reports that he had 5 shots of tequila which is usually how much he drinks on the weekends. He reports that he remembers playing a board game. Patient then reportedly fell although the patient cannot
really remember. Patient's girlfriend called 911 and the patient was transported to the emergency department. On arrival, patient admits that his equilibrium has been off for the past week. He also notes that he has been having chest pain for the
past 2 weeks. Patient denies shortness of breath but states that he has had a cough which is productive of yellow and sometimes green mucus. Patient notes some lower abdominal discomfort which he attributes to recent constipation. Patient denies
nausea or vomiting. Patient admits that he has not taken any of his prescribed medications including his cardiac medications for the past several months. He states that his father is very fearful of medicine and he instilled the same fear in him
so he does not take them. Patient denies pain anywhere although medics did note erythema to the patient's knees bilaterally, right worse than left.
Past History
<Waleska Rg PA-C - Last Filed: 12/24/24 17:51>
Past History
ED Past Medical History: [place] (NSTEMI 2019)
ED Past Surgical History: Cardiac (stent 2019)
Social History
Tobacco: Smoker
Alcohol: Occasional
Drug: None
Personal:
Employment: Employed
Review of Systems
<Waleska Rg PA-C - Last Filed: 12/24/24 17:51>
Review of Systems
Allergies reviewed?: Yes
All Other Systems: ROS reviewed and negative except as documented in HPI and ROS
Constitutional: Reports no symptoms
EENT: Reports no symptoms
Respiratory: Reports cough; Denies trouble breathing
Cardiac: Reports chest pain
ABD/GI: Reports abdominal pain and constipated; Denies nausea, vomiting or diarrhea
: Reports no symptoms
Musculoskeletal: Reports no symptoms
Skin: Reports no symptoms
Neurological: Reports no symptoms
Endocrine: Reports no symptoms
Hematologic/Lymphatic: Reports no symptoms
Psychiatric: Reports no symptoms
Phy Exam
<Waleska Rg PA-C - Last Filed: 12/24/24 17:51>
General Physical Exam
General Presentation: well appearing and no apparent distress
General Skin: warm, dry and flushed
General Habitus: normal
General Mental: appears intoxicated
General Hydration: appears well hydrated
ENT Exam
ENT Exam: EOMI, pharynx normal, neck supple and normocephalic
Eye Exam
Eye Exam: PERRL, cornea clear and conjunctiva normal
Cardiovascular Exam
Cardiovascular Exam: regular rate/rhythm, no edema, no murmur and normal peripheral pulses
Pulmonary Exam
Pulmonary Exam: lungs clear, no respiratory distress, no rales, no crackles, no rhonchi, no stridor, no wheezing and no cough
Gastrointestinal Exam
Gastrointestinal Exam: normal bowel sounds, non tender, soft, no organomegaly, no pulsatile mass and non distended
Neurological Exam
Neurological Exam: alert, no motor deficits, appears intoxicated (slightly slurred speech) and other (oriented to person and time, not to place)
Musculoskeletal Exam
Musculoskeletal Exam: full ROM, no edema and other (erythema to the anterior knees bilaterally, no significant ttp)
Skin Exam
Skin Exam: normal color, warm/dry, no rash and no petechia
Psychiatric Exam
Psychiatric Exam: normal mood/affect
Course
<Waleska Rg PA-C - Last Filed: 12/24/24 17:51>
Orders/Labs/Results
Orders:
Orders
12/24/24 16:06
Electrocardiogram (*1) Urgent
Reason for Study: Chest Pain
Cardiac Monitoring- Treatment ONCE
IV Insert/Care/Rem.- Treatment PRN
Accucheck Once [Bedside Glucose Monitoring-ONCE] As Directed
12/24/24 16:07
EKG- Treatment ONCE
12/24/24 16:19
0.9% Sodium Chloride 1000 ml [Nss] 1,000 ml IV BOLUS
Knee, Left 4 or More Views [CR Knee - Left 4 Or More View*] Urgent
Comment:
Reason For Exam: left knee pain s/p fall while intoxicated
Knee, Right 4 or More Views [CR Knee- Right 4 Or More View*] Urgent
Comment:
Reason For Exam: right knee pain s/p fall while intoxicated
12/24/24 16:21
CT Head W/o Iv Contrast Urgent
Comment:
Reason For Exam: intoxicated, fall
12/24/24 16:32
Alcohol Urgent
Complete Blood Count/With Diff Urgent
Comprehensive Metabolic Panel Urgent
Troponin I Urgent
12/24/24 16:58
CR Chest - 2 Views Urgent
Comment:
Reason For Exam: chest pain, cough
Abnormal Lab Results
12/24/24
16:32
MCV 97.8 H fL
(80.0-94.0)
MCH 33.3 H pg
(27.0-31.0)
Chloride 108 H mmol/L
(98-107)
BUN 8 L mg/dl
(9-20)
Creatinine 0.6 L mg/dL
(0.7-1.3)
AST 62 H U/L
(17-59)
ALT 62 H U/L
(0-50)
12/24/24 16:32
12/24/24 16:32
Vital Signs
Initial and Last Documented VS:
Initial Vital Signs
BP
147/113
12/24/24 16:05
Last Documented Vital Signs
Temp Pulse Resp BP Pulse Ox
97.5 F 86 15 127/93 97
12/24/24 16:08 12/24/24 17:00 12/24/24 17:00 12/24/24 17:00 12/24/24 16:42
<Filipe Mccracken Jr., GLENN - Last Filed: 12/24/24 18:22>
Orders/Labs/Results
Orders:
Orders
12/24/24 16:06
Electrocardiogram (*1) Urgent
Reason for Study: Chest Pain
Cardiac Monitoring- Treatment ONCE
IV Insert/Care/Rem.- Treatment PRN
Accucheck Once [Bedside Glucose Monitoring-ONCE] As Directed
12/24/24 16:07
EKG- Treatment ONCE
12/24/24 16:19
0.9% Sodium Chloride 1000 ml [Nss] 1,000 ml IV BOLUS
Knee, Left 4 or More Views [CR Knee - Left 4 Or More View*] Urgent
Comment:
Reason For Exam: left knee pain s/p fall while intoxicated
Knee, Right 4 or More Views [CR Knee- Right 4 Or More View*] Urgent
Comment:
Reason For Exam: right knee pain s/p fall while intoxicated
12/24/24 16:21
CT Head W/o Iv Contrast Urgent
Comment:
Reason For Exam: intoxicated, fall
12/24/24 16:32
Alcohol Urgent
Complete Blood Count/With Diff Urgent
Comprehensive Metabolic Panel Urgent
Troponin I Urgent
12/24/24 16:58
CR Chest - 2 Views Urgent
Comment:
Reason For Exam: chest pain, cough
Abnormal Lab Results
12/24/24
16:32
MCV 97.8 H fL
(80.0-94.0)
MCH 33.3 H pg
(27.0-31.0)
Chloride 108 H mmol/L
(98-107)
BUN 8 L mg/dl
(9-20)
Creatinine 0.6 L mg/dL
(0.7-1.3)
AST 62 H U/L
(17-59)
ALT 62 H U/L
(0-50)
12/24/24 16:32
12/24/24 16:32
Vital Signs
Initial and Last Documented VS:
Initial Vital Signs
BP
147/113
12/24/24 16:05
Last Documented Vital Signs
Temp Pulse Resp BP Pulse Ox
97.5 F 86 15 127/93 97
12/24/24 16:08 12/24/24 17:00 12/24/24 17:00 12/24/24 17:00 12/24/24 16:42
<Waleska Rg PA-C - Last Filed: 12/24/24 17:51>
*Critical Care Note
Total Time (30-74mins, 75-104mins- exclusive of procedures): Not Applicable
<Waleska Rg PA-C - Last Filed: 12/24/24 17:51>
Update Note
Update Note:
Patient 59-year-old male with past medical history of CAD status post 2 cardiac stents who presents to the emergency department for evaluation following a fall reported by patient's girlfriend. Patient cannot recall the details surrounding the
fall. On further questioning, the patient admits to feeling off balance for the past week and also experiencing chest pain for the past 2 weeks. On arrival, patient is mildly hypertensive, afebrile. On exam, patient does appear intoxicated but is
in no acute distress, he has a normal cardiopulmonary exam and a benign abdomen without focal neurological deficits. EKG was obtained and demonstrates T wave abnormalities which are unchanged from previous. Will check labs along with a CT of the
head given the patient's fall. Will also obtain chest x-ray given the patient's chest pain and radiographs of the knees. Will give IV fluids and reassess.
<Filipe Mccracken Jr., PA-C - Last Filed: 12/24/24 18:22>
Update Note
Update Note:
Patient 59-year-old male with past medical history of CAD status post 2 cardiac stents who presents to the emergency department for evaluation following a fall reported by patient's girlfriend. Patient cannot recall the details surrounding the
fall. On further questioning, the patient admits to feeling off balance for the past week and also experiencing chest pain for the past 2 weeks. On arrival, patient is mildly hypertensive, afebrile. On exam, patient does appear intoxicated but is
in no acute distress, he has a normal cardiopulmonary exam and a benign abdomen without focal neurological deficits. EKG was obtained and demonstrates T wave abnormalities which are unchanged from previous. Will check labs along with a CT of the
head given the patient's fall. Will also obtain chest x-ray given the patient's chest pain and radiographs of the knees. Will give IV fluids and reassess.
1800 ES///patient was asking to leave. At this point the patient is walking with steady gait answering all questions fully alert and oriented he understands where he is the circumstances of why he is here the date the president. It was explained
to him that there was concern that he could have an injury. He claims that he has no discomfort at this time and that he is feeling like he is sobered up at this point. He claims that he feels well and will return if any symptoms worsen.
ED Attending Note
<Waleska Rg PA-C - Last Filed: 12/24/24 17:51>
-
Portions of this chart may have been created with voice recognition software.� Occasional wrong word or��sound alike� substitutions may have occurred due to the inherent limitations of voice recognition software.
Discharge Plan
Departure
Patient Disposition: Home (Routine Discharge)
Date of Disposition: 12/24/24
Time of Disposition: 17:54
Patient with high blood pressure during this ER visit?: No
Condition: Good
Covid-19: Not Applicable
Discharge Problem:
Fall, Alcohol ingestion
Instructions: Preventing falls in adults, Alcohol intoxication - ED discharge instructions
Prescriptions:
No Action
pantoprazole 40 MG tablet,delayed release (DR/EC)
40 mg PO DAILY Qty: 30 11RF
metoprolol succinate [Toprol XL] 25 MG tablet extended release 24 hr
25 mg PO BID 90 Days Qty: 180 0RF
Brilinta 90 mg Tablet
90 mg PO BID Qty: 180 3RF
aspirin 81 mg Tablet,Chewable
81 mg PO DAILY Qty: 30 11RF
atorvastatin 80 mg Tablet
80 mg PO QPM Qty: 30 11RF
losartan 25 mg Tablet
25 mg PO DAILY Qty: 30 1RF
folic acid 1 mg Tablet
1 mg PO DAILY Qty: 20 0RF
thiamine HCl (vitamin B1) 100 mg Tablet
100 mg PO DAILY Qty: 20 0RF
Referrals:
UNKNOWN - PT NOT,INTERVIEWE [Family Provider] -
Activity Restrictions/Additional Instructions:
You came to the emergency department today with concerns of an episode at home. Here your reassuring laboratory assessment. You did not end up getting a CT scan but you are walking with steady gait answering all questions and requesting to leave.
If you have any progressive symptoms you will need to immediately return to the ER. Return for any worsening, new or concerning symptoms.
Interventions
Interventions:
*Risk Screen - Suicide Last Done: 12/24/24 16:08
*General Assessment Last Done: 12/24/24 16:08
*Neglect/Abuse Screening Last Done: 12/24/24 16:08
*ED- Fall Risk Assessment Last Done: 12/24/24 16:13
*ED COVID-19 Vaccine History Last Done: 12/24/24 16:40
*Nursing Disposition Last Done: 12/24/24 18:00
ED-Musculoskeletal Assessment Last Done: 12/24/24 16:42
ED- Neurological Assessment Last Done: 12/24/24 16:42
ED-Skin Assessment Last Done: 12/24/24 16:42
Discharge Date and Time
Discharge Date/Time: 12/24/24 18:00
Print Language: ARABIC
[2024-12-24 17:00] VITALS: BP 127/93
[2024-12-24 17:03] LABS: ALT (SGPT) 62 U/L (0-50); AST (SGOT) 62 U/L (17-59); Alkaline Phosphatase 92 U/L (38-126); Blood Urea Nitrogen 8 mg/dl (9-20); Calcium 9.6 mg/dl (8.4-10.2); Carbon Dioxide 23 mmol/L (22-30); Chloride 108 mmol/L (98-107); Estimated Creatinine Clearance > 125 ml/min; Glucose 99 mg/dl (70-99); Potassium 4.4 mmol/L (3.5-5.1); Sodium 145 mmol/L (135-145); Total Bilirubin 0.7 mg/dl (0.2-1.3); Total Protein 8.1 g/dl (6.3-8.2); eGFR > 60.00
[2024-12-24 17:11] LABS: Troponin I < 0.012 ng/ml
[2024-12-24 17:13] LABS: Alcohol 379 mg/dl
--- NOTE | 2024-12-24 17:37 | EDRN ---
Kamari BROOKS in w/ pt at this time speaking w/ pt.
--- NOTE | 2024-12-24 17:38 | EDRN ---
Pt took himself off the monitor.
--- NOTE | 2024-12-24 17:45 | EDRN ---
Pt declined CXR and knee xrays and CT scan at this time.
--- NOTE | 2024-12-24 17:46 | EDRN ---
Addendum entered by Yulissa Swift RN 12/24/24 17:48:
happened at 17:00.
Original Note:
Pt found in room taking all cardiac leads off, BP cuff and POX. Pt completely dressed and sitting at end of stretcher. Pt demanding to have IV and to leave. security called as pt is inebriated and needs to have a ride home. Pt settled onto stretcher
though refused to be replaced on cardiac.
--- NOTE | 2024-12-24 17:48 | EDRN ---
Pt demanding to have IV out and Kamari BROOKS was in to speak w/ pt and said IV can come out. Mich BROOKS had asked if pt would be okay w/ IVF and was but then after 10 minutes would not stop asking to have IV removed.
--- NOTE | 2024-12-24 17:49 | EDRN ---
Pt now w/ IV out was out side of room and pressuring to leave saying, 'you can't keep me here. I have a right to leave.' Kamari Mccracken PA in to speak w/ pt and pt is again sitting on side of stretcher to await a ride. Pt states his girlfriend's mother
is coming to pick him up.
--- NOTE | 2024-12-24 18:00 | EDRN ---
Pt ride was in triage waiting area so after pt signed his discharge papers this RN escorted pt to his ride, his mother in law at this time
== END 2024-12-24 18:00 | disposition home or self-care (01) ==
LOC: EMR 16:00
PROVIDERS: Physician Assistant Medical; EMERGENCY PHYSICIAN Student in an Organized Health Care Education/Training Program
DX: F10.129 Alcohol abuse with intoxication, unspecified (principal); W19.XXXA Unspecified fall, initial encounter; I25.10 Atherosclerotic heart disease of native coronary artery without angina pectoris; I25.2 Old myocardial infarction; F17.200 Nicotine dependence, unspecified, uncomplicated; Z95.5 Presence of coronary angioplasty implant and graft
CPT/HCPCS: 99283; 80053; 82077; 82962; 84484; 85025; 93005